=== PATIENT | female | born 1965 | race American Indian/Alaskan Native ===

== ENCOUNTER 2021-02-12 21:39 | Emergency (ER) | payer SELFPAY ==
[2021-02-12] MEDS ORDERED: LIDOCAINE 2%/EPINEPHRINE 1:200,000 VIAL (20 ML) INFILTRATI ONE (22:05)
[2021-02-12] MEDS ORDERED: OXYMETAZOLINE 0.05% NASAL SPRAY NS ONE (22:05)
--- NOTE | 2021-02-12 22:05 | Emergency Department Report ---
ED General Adult HPI - General Chief complaint: Nosebleed Stated complaint: NOSE BLEED PUI?: No Time Seen by Provider: 02/12/21 21:58 Source: patient, family Mode of arrival: Ambulatory Limitations: No Limitations - History of Present Illness Initial comments: The patient was evaluated in the emergency department for symptoms described in the history of present illness. He/she was evaluated in the context of the global COVID-19 pandemic, which necessitated consideration that the patient might be at risk for infection with the virus that causes COVID-19. Institutional protocols and algorithms that pertain to the evaluation of patients at risk for COVID-19 are in a state of rapid change based on information released by regulatory bodies including the CDC and federal and state organizations. These policies and algorithms were followed during the patient's care in the emergency department. Please note that these policies, procedures and recommendations changed on a rapid basis. Primary CARE doctor: Bhupendra osman During the history and physical examination, I am chaperoned by quality control technician Olga Suarez Patient is a 55-year-old female. She is not known to myself previously. She presents to the ER today with a complaint of nontraumatic nasal bleeding, which started just prior to arrival. She thinks she may have picked or scratch her nose. The patient states she does not take blood thinning medications. Patient indicates she does not use intranasal drugs. The patient has been spitting up some blood, which has traveled back from her nose into her throat, but prior to the event, denies hematemesis and bright red blood per rectum. She is somewhat anxious. The patient denies Covid symptomatology. Nasal bleeding so far has been constant. It does not have relieving factors. The patient denies additional injuries and complaints. -: Gradual, minutes(s) Consistency: constant Improves with: none Worsens with: none - Related Data Previous Rx's Medication Instructions Recorded Last Taken Type HYDROcodone/APAP 5-325 [[place] 1 each PO Q6HR PRN #12 tablet 09/07/18 Unknown Rx 5/325] Acetaminophen [Non-Aspirin Extra 500 mg PO Q6HR PRN #30 tablet 02/13/21 Unknown Rx Strength] Amoxicillin/Potassium Clav 1 each PO BID #9 tablet 02/13/21 Unknown Rx [Augmentin 875-125 Tablet] Fluticasone [Flonase] 1 spray NS QDAY #1 bottle 02/13/21 Unknown Rx Allergies Allergy/AdvReac Type Severity Reaction Status Date / Time No Known Allergies Allergy Unverified 09/07/18 15:32 ED Review of Systems ROS: Stated complaint: NOSE BLEED Other details as noted in HPI Constitutional: denies: fever Eyes: denies: eye discharge ENT: epistaxis Respiratory: denies: wheezing Cardiovascular: denies: syncope Gastrointestinal: denies: abdominal pain Psychiatric: anxiety Hematological/Lymphatic: denies: easy bleeding ED Past Medical Hx - Past Medical History Previous Medical History?: No - Surgical History Past Surgical History?: No Additional Surgical History: x 1. HSG procedure - Social History Smoking Status: Never Smoker Substance Use Type: None - Medications Home Medications: Home Medications Medication Instructions Recorded Confirmed Last Taken Type HYDROcodone/APAP 5-325 [[place] 1 each PO Q6HR PRN #12 tablet 09/07/18 Unknown Rx 5/325] Acetaminophen [Non-Aspirin Extra 500 mg PO Q6HR PRN #30 tablet 02/13/21 Unknown Rx Strength] Amoxicillin/Potassium Clav 1 each PO BID #9 tablet 02/13/21 Unknown Rx [Augmentin 875-125 Tablet] Fluticasone [Flonase] 1 spray NS QDAY #1 bottle 02/13/21 Unknown Rx ED Physical Exam - General Limitations: No Limitations General appearance: alert, anxious, in distress, obese - Head Head exam: Present: atraumatic, normocephalic - Eye Eye exam: Present: normal appearance, EOMI. Absent: nystagmus - ENT ENT exam: Present: normal orophraynx, mucous membranes moist, normal external ear exam - Expanded ENT Exam Expanded Ear exam: Present: normal external inspection. Absent: auricular hematoma, auricular trauma Mouth exam: Present: normal external inspection, tongue normal. Absent: drooling, trismus, muffled voice, tongue elevation, laceration Teeth exam: Present: normal inspection Throat exam: Negative: tonsillar erythema, tonsillomegaly, tonsillar exudate, R peritonsillar mass, L peritonsillar mass - Neck Neck exam: Present: normal inspection, full ROM. Absent: tenderness, meningismus - Respiratory Respiratory exam: Present: normal lung sounds bilaterally. Absent: respiratory distress, wheezes, rales, rhonchi, stridor, decreased breath sounds - Cardiovascular Cardiovascular Exam: Present: normal rhythm, tachycardia, normal heart sounds. Absent: systolic murmur, diastolic murmur, rubs, gallop - GI/Abdominal GI/Abdominal exam: Present: soft. Absent: distended, tenderness, guarding, rebound, rigid, pulsatile mass - Extremities Exam Extremities exam: Present: normal inspection, full ROM, other (2+ pulses in the bilateral upper extremities. There is no long bony tenderness. The muscular compartments are soft.) - Back Exam Back exam: Present: normal inspection. Absent: tenderness, CVA tenderness (R), CVA tenderness (L), paraspinal tenderness, vertebral tenderness - Neurological Exam Neurological exam: Present: alert, other (No facial droop. Tongue midline. Extraocular movements intact bilaterally. Facial sensation intact to light touch in V1, V2, V3 distribution bilaterally. 5 and a 5 strength in 4 extremities. Sensation intact to light touch in 4 extremities.) - Psychiatric Psychiatric exam: Present: anxious - Skin Skin exam: Present: warm, dry, intact, normal color. Absent: rash - Other Other exam information: The left nostril, minimal bleeding is noted anteriorly. Clots are noted anteriorly. Blood clots noted in the right nostril. ED Course Vital Signs 02/12/21 21:47 Temperature 98.3 F Pulse Rate 111 H Respiratory 17 Rate Blood Pressure 170/107 O2 Sat by Pulse 99 Oximetry - Reevaluation(s) Reevaluation #1: 02/13/21 00:15 Differential diagnosis, including but not limited to: Anterior nasal bleeding, incidental elevated blood pressure Assessment and plan: 55-year-old female presenting to the ER today with a primary complaint of nontraumatic spontaneous left-sided nasal bleeding. We first attempted conservative measures, with application of direct pressure, tongue depressor device, Afrin/oxymetazoline spray to the bilateral nostrils, and 2 x 2 cotton sponges, soaked with lidocaine/epinephrine, and oxymetazoline. These interventions were unfortunately not successful. The patient then provided verbal consent for placement of a 4.5 cm Rhino Rocket. Rhino Rocket was placed in the left nostril, with 1 attempt, and filled with 5 cc of air. Patient's bleeding has since stopped. The patient has been reevaluated multiple times since then. Her heart rate is currently 75 bpm. There is no active bleeding at this time. I spent an extensive amount of time counseling the patient and on natural history of nasal bleeding, possibility/eventuality of rebleed, need to follow-up with outpatient otolaryngology. Blood pressure currently improved, currently in the 140s/150s. As a courtesy, will discuss with the [facility] network to arrange close outpatient follow-up. 02/13/21 00:[address] Drake, [facility] physician, they will arrange for ENT follow-up within the next 24 to 48 hours - Procedure Description Procedures done: Patient provided verbal consent for management of nasal bleeding. Oxymetazoline sprayed inside each nostril, and then 2 x 2 sponges soaked with 1% lidocaine and epinephrine, and oxymetazoline. Then, in each nostril, and individual 2 x 2 gauze/sponge is gently inserted inside each nostril, and then the tongue depressor device is applied to the external aspect of the nose, the patient holds direct digital pressure for 15 minutes. Patient tolerated this procedure well, with no adverse events. ED Medical Decision Making - Lab Data Vital Signs 02/12/21 21:47 Temperature 98.3 F Pulse Rate 111 H Respiratory 17 Rate Blood Pressure 170/107 O2 Sat by Pulse 99 Oximetry - Medical Decision Making Differential diagnosis, including but not limited to: Epistaxis, nasal bleeding Assessment and plan: 55-year-old female with nasal bleeding, now resolved with placement of a Rhino Rocket after conservative measures have failed. She is tolerating her secretions, protecting her airway, tachycardia has resolved, and she has been reassessed multiple times while here in this emergency room. She will be discharged home with prophylactic Augmentin, instructions to follow-up with local outpatient otolaryngology. Return precautions are reviewed. Critical care attestation.: If time is entered above; I have spent that time in minutes in the direct care of this critically ill patient, excluding procedure time. ED Disposition Clinical Impression: Anterior epistaxis Disposition: DC-01 TO HOME OR SELFCARE Is pt being admited?: No Does the pt Need Aspirin: No Condition: Stable Instructions: Nosebleed, [id number] Additional Instructions: Please keep the nasal packing in place. Take care to avoid blowing your nose, coughing, sneezing. Minimize/avoid consumption of alcohol, smoke products, tobacco, Motrin, ibuprofen, Naprosyn, Aleve, aspirin. Patient may use Afrin/oxymetazoline nasal spray, [id number], once every 12 hours, for the next 3 days. Patient should not use this medication more often than once every 12 hours, and for no more than 3 consecutive days. Patient may use the Flonase medication as directed, acetaminophen medication as directed, and take the antibiotics as directed. Please follow-up with the ear nose and throat doctor within the next 3 to 5 days for repeat checkup and evaluation. It is possible that even with packing, rebleeding of the nose may occur. If this happens, please apply a gentle direct pressure to the anterior aspect of the nose, as we discussed. If this does not stop bleeding, please return to the emergency room right away. Please return to the emergency room right away with new pain, worsened pain, migration of pain, projectile vomiting, change in mental status, confusion, inability to tolerate liquid feeds, new, worsened or different symptoms not present on the initial emergency room evaluation. For the patient's convenience, a number of local otolaryngology/ear flap binder have been listed that she may follow-up with. Alternatively, she may contact her private insurance company, and obtain follow-up with an ear flap binder within her network. Prescriptions: Amoxicillin/Potassium Clav [Augmentin 875-125 Tablet] 1 each PO BID #9 tablet Fluticasone [Flonase] 1 spray NS QDAY #1 bottle Acetaminophen [Non-Aspirin Extra Strength] 500 mg PO Q6HR PRN #30 tablet PRN Reason: Pain , Severe (7-10) Referrals: PRIMARY CARE, [Primary Care Provider] - 3-5 Days HARMEET RODAS MD [Staff Physician] - 3-5 Days CARIDAD VILLA MD [Staff Physician] - 3-5 Days HANNAH ANDREA MD [Staff Physician] - 3-5 Days RAHSID MCCAIN MD [Referring] - 3-5 Days Forms: Work/School Release Form(ED) Date of procedure: 02/13/21 Pre-op diagnosis: nasal bleeding Post-op diagnosis: same Procedure: After discussing risks, benefits and alternatives with the patient, patient provided verbal consent for placement of Rhino Rocket to assist with control of nasal bleeding. A 4.5 cm Rhino Rocket is soaked in sterile saline, for 1 minute, and then gently inserted into the patient's left nostril. The Rhino Rocket is then inflated gently with 5 cc of air, through the fighter pilot balloon, and then gently taped/affixed to the patient's left face. Nasal bleeding stopped, and patient endorsed improvement in symptoms. The patient tolerated the procedure well, without any significant complications. Anesthesia: local Surgeon: BOAZ BARAKAT Estimated blood loss: minimal Pathology: none Condition: stable Disposition: same day (Patient to be discharged home)
[2021-02-13] MEDS ORDERED: MORPHINE 4 MG/1 ML INJ IM ONE (00:13)
[2021-02-13] MEDS ORDERED: AMOXICILLIN/K CLAV 875/125MG TAB PO ONE (00:26)
[2021-02-13 01:00] VITALS: BP 172/90
== END 2021-02-13 00:52 | disposition home or self-care (01) ==
LOC: ED 21:39
DX: R04.0 Epistaxis (principal); Z79.899 Other long term (current) drug therapy; Z98.890 Other specified postprocedural states
CPT/HCPCS: 30901; 96372; 99282; J2270